=== PATIENT | male | born 1965 | race Caucasian/White ===

== ENCOUNTER → 2019-03-01 | Outpatient (CLI) | payer BC ==
[2019-03-01 13:04] LABS: HCT 47.5 % (39.0-53.0); HGB 15.8 gm/dL (13.0-17.5); MCHC 33.3 g/dL (31.0-37.0); Macrocytosis Slight; Mean Platelet Volume 7.4; Platelet Count 642 k/uL (150-450); RBC 4.79 m/uL (4.30-5.90); RDW 15.8 % (11.5-15.5); WBC 15.7 k/uL (3.8-10.6)
[2019-03-01 13:13] LABS: INR 0.9 (<1.2); Partial Thromboplastin Time 26.3 sec (22.0-30.0); Prothrombin Time 9.9 sec (9.0-12.0)
[2019-03-01 13:30] LABS: African American GFR (CKD) >90 (>60 ml/min/1.73 sqM); Albumin 4.3 g/dL (3.5-5.0); Anion Gap 15 mmol/L; Blood Urea Nitrogen 16 mg/dL (9-20); Calcium 9.8 mg/dL (8.4-10.2); Carbon Dioxide 21 mmol/L (22-30); Chloride 101 mmol/L (98-107); Glucose 88 mg/dL (74-99); Sodium 137 mmol/L (137-145); Total Bilirubin 0.7 mg/dL (0.2-1.3); Total Protein 7.3 g/dL (6.3-8.2)
[2019-03-01 13:32] LABS: Potassium 4.3 mmol/L (3.5-5.1)
[2019-03-01 13:33] LABS: ALT 61 U/L (21-72); AST 65 U/L (17-59); Alkaline Phosphatase 100 U/L (38-126)
[2019-03-01 14:35] LABS: Appearance,Urine Clear (Clear); Bilirubin,Urine Negative (Negative); Blood,Urine Negative (Negative); Color,Urine Yellow; Glucose,Urine (UA) Negative (Negative); Ketones,Urine Negative (Negative); Leukocyte Esterase,Urine Negative (Negative); Nitrite,Urine Negative (Negative); Protein,Urine Negative (Negative); Urobilinogen,Urine <2.0 mg/dL (<2.0)
[2019-03-03 11:18] LABS: Hepatitis A Antibody IgM Non-Reactive (Non-Reactive); Hepatitis B Core IgM Non-Reactive (Non-Reactive)
== END | disposition home or self-care (01) ==
LOC: LABPAT 12:14
PROVIDERS: ATTEND Orthopaedic Surgery
DX: Z01.818 Encounter for other preprocedural examination (principal); Z01.812 Encounter for preprocedural laboratory examination
CPT/HCPCS: 36415; 80053; 80074; 81003; 85027; 85610; 85730; 87070; 93005

== ENCOUNTER → 2019-03-03 | Outpatient (CLI) | payer BC ==
[2019-03-03 13:54] LABS: Basophils # (A) 0.1 k/uL (0-0.2); Basophils % (A) 1 %; Eosinophils # (A) 0.5 k/uL (0-0.7); Eosinophils % (A) 3 %; HCT 46.2 % (39.0-53.0); HGB 15.6 gm/dL (13.0-17.5); Lymphocytes # (A) 1.2 k/uL (1.0-4.8); Lymphocytes % (A) 7 %; MCHC 33.7 g/dL (31.0-37.0); MCV 100.7 fL (80.0-100.0); Macrocytosis Slight; Mean Platelet Volume 6.2; Monocytes # (A) 1.1 k/uL (0-1.0); Monocytes % (A) 6 %; Neutrophils # (A) 14.5 k/uL (1.3-7.7); Neutrophils % (A) 83 %; Platelet Count 624 k/uL (150-450); RBC 4.59 m/uL (4.30-5.90); RDW 14.8 % (11.5-15.5); WBC 17.5 k/uL (3.8-10.6)
== END | disposition home or self-care (01) ==
LOC: LABWHC1 13:28
PROVIDERS: ATTEND Internal Medicine
DX: D72.829 Elevated white blood cell count, unspecified (principal)
CPT/HCPCS: 36415; 85025

== ENCOUNTER → 2019-03-22 | Outpatient (CLI) | payer BC ==
[2019-03-22 15:23] LABS: Basophils % (A) 1 %; Eosinophils # (A) 0.6 k/uL (0-0.7); Eosinophils % (A) 6 %; HCT 48.4 % (39.0-53.0); Lymphocytes # (A) 1.4 k/uL (1.0-4.8); Lymphocytes % (A) 15 %; MCH 33.1 pg (25.0-35.0); MCHC 33.1 g/dL (31.0-37.0); MCV 100.1 fL (80.0-100.0); Macrocytosis Slight; Mean Platelet Volume 6.4; Monocytes # (A) 0.5 k/uL (0-1.0); Monocytes % (A) 5 %; Neutrophils # (A) 6.8 k/uL (1.3-7.7); Neutrophils % (A) 73 %; Platelet Count 513 k/uL (150-450); RBC 4.84 m/uL (4.30-5.90); RDW 14.9 % (11.5-15.5); WBC 9.4 k/uL (3.8-10.6)
== END | disposition home or self-care (01) ==
LOC: LABWHC1 15:08
PROVIDERS: ATTEND Internal Medicine
DX: D72.829 Elevated white blood cell count, unspecified (principal); R60.0 Localized edema
CPT/HCPCS: 36415; 85025

== ENCOUNTER → 2019-04-08 | Outpatient (CLI) | payer BC ==
[2019-04-08 17:36] LABS: Anisocytosis Slight; HCT 48.3 % (39.0-53.0); HGB 16.3 gm/dL (13.0-17.5); MCH 34.1 pg (25.0-35.0); MCHC 33.8 g/dL (31.0-37.0); Macrocytosis Slight; Mean Platelet Volume 7.3; Platelet Count 274 k/uL (150-450); RBC 4.78 m/uL (4.30-5.90); RDW 16.2 % (11.5-15.5); WBC 9.2 k/uL (3.8-10.6)
[2019-04-08 17:42] LABS: Appearance,Urine Clear (Clear); Bacteria,Urine Rare /hpf; Bilirubin,Urine Negative (Negative); Blood,Urine Negative (Negative); Color,Urine Yellow; Glucose,Urine (UA) Negative (Negative); Hyphae Yeast, Urine Rare /hpf; Ketones,Urine Trace (Negative); Leukocyte Esterase,Urine Moderate (Negative); Mucus,Urine Rare /hpf; Nitrite,Urine Negative (Negative); Protein,Urine Negative (Negative); RBC,Urine <1 /hpf (0-5); Specific Gravity,Urine 1.007 (1.001-1.035); Urobilinogen,Urine <2.0 mg/dL (<2.0); WBC,Urine 6 /hpf (0-5)
[2019-04-08 17:46] LABS: INR 0.9 (<1.2); Partial Thromboplastin Time 27.7 sec (22.0-30.0); Prothrombin Time 9.6 sec (9.0-12.0)
[2019-04-08 17:52] LABS: Albumin 4.6 g/dL (3.5-5.0); Calcium 10.3 mg/dL (8.4-10.2); Potassium 4.4 mmol/L (3.5-5.1); Total Protein 8.1 g/dL (6.3-8.2)
== END | disposition home or self-care (01) ==
LOC: LABPAT 17:01
PROVIDERS: ATTEND Orthopaedic Surgery
DX: Z01.812 Encounter for preprocedural laboratory examination (principal); M16.12 Unilateral primary osteoarthritis, left hip
CPT/HCPCS: 36415; 80053; 81001; 85027; 85610; 85730; 87070

== ENCOUNTER 2019-04-12 11:21 | Inpatient (IN) | payer BC ==
[~2019-04-12 11:21] MED LIST: ACETAMINOPHEN TAB 500 MG TAB PO ONE; HYDROmorphone 0.5 MG/0.5 ML SYRINGE IVP PRN; LIDOCAINE 1% 20 ML VIAL (10MG/ML) FOR IV START INTRADERMA PRN; MELOXICAM 7.5 MG TAB PO ONE; ONDANSETRON 4 MG/2 ML VIAL IVP ONE; TRANEXAMIC ACID 1,000 MG in SODIUM CHLORIDE 0.9% 100 ML IVPB ONE
[2019-04-12] MEDS: LACTATED RINGERS 1,000 ML IV SCH ×2 (12:01→18:27)
[2019-04-12] MEDS ORDERED: DEXAMETHASONE SOD PHOS (MDV) 100 MG/10 ML VIAL IVP ONE (12:13)
[2019-04-12] MEDS ORDERED: ROPIVACAINE 246.25 MG, EPINEPHrine 0.5 MG, KETOROLAC 30 MG, cloNIDine HCL/PF 80 MCG, WA... MISCELLANE ONE ×5 (12:19)
[2019-04-12] MEDS ORDERED: TRANEXAMIC ACID 1,000 MG/10 ML VIAL ONE (12:37)
[2019-04-12] MEDS ORDERED: SODIUM CHLORIDE 0.9% 100 ML BAG ONE (12:37)
[2019-04-12] MEDS ORDERED: PROPOFOL 10 MG/ML 20 ML VIAL IV ONE (12:37)
[2019-04-12] MEDS ORDERED: MIDAZOLAM 2 MG/2 ML VIAL ONE (12:37)
[2019-04-12] MEDS ORDERED: fentaNYL (PF) 50 MCG/ML 2 ML AMP ONE (12:37)
[2019-04-12] MEDS ORDERED: ceFAZolin 3,000 MG in SODIUM CHLORIDE 0.9% IRRIGATIO 3,000 ML IRRIGATION ONE (12:38)
[2019-04-12] MEDS ORDERED: LACTATED RINGERS 1,000 ML IV ONE ×2 (13:15→14:30)
[2019-04-12] MEDS ORDERED: NALOXONE 0.4 MG/ML 1 ML VIAL IV PRN (14:24)
[2019-04-12] MEDS ORDERED: HYDROcodone/APAP 7.5-325MG 1 EACH TAB PO PRN (14:24)
[2019-04-12] MEDS ORDERED: HYDROmorphone 1 MG/ML 1 ML SYRINGE IVP PRN (14:24)
[2019-04-12] MEDS ORDERED: MAGNESIUM HYDROXIDE 2,400 MG/10 ML CUP PO PRN (14:24)
[2019-04-12] MEDS ORDERED: HYDROmorphone 0.5 MG/0.5 ML SYRINGE IVP PRN (14:24)
--- NOTE | 2019-04-12 14:46 | P.OP ---
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 ANESTHESIA: Spinal ESTIMATED BLOOD LOSS: 50 ml. AGENCY SALES DIRECTOR: Maricel Clancy PA-C (assistance with: patient positioning, retraction, exposure, hemostasis, leg positioning, implantation, irrigation, closure, dressing) COMPLICATIONS: None apparent. COMPONENTS IMPLANTED: Marva continuum acetabular cup with cluster holes; continuum longevity 15 elevated liner, 32 mm id; Marva VerSys Fiber Metal stem; VerSys 32 mm femoral head with 10.5 mm neck length extension INDICATIONS: Julio is a 53-year-old male with significant end-stage arthritis secondary to avascular necrosis (presumably from use of alcohol) involving the left hip and commensurate severe symptoms. He has symptoms and avascular necrosis bilaterally, greater on the left than the right. He presents to the operating room today for left total hip replacement. He has a limb length inequality of approximately 1-1.5 cm with the left side being shorter. I have discussed the steps of the operation as well as potential risks and complications as being inclusive of, but not limited to: Leading, infection, scarring, discomfort, or vessel and/or nerve damage, need for further surgery, loosening, dislocation, wear, osteolysis, limb length inequality, fracture, blood clot, pulmonary embolism, , persistent limp, and other risks. The patient is aware these risks and wishes to proceed with surgery and has signed a consent form. PROCEDURE: After appropriate consent was obtained, the patient was taken to the operating room and placed in supine position. Spinal anesthetic was administered and after confirmation of adequate anesthesia, the patient was placed into the lateral decubitus position with the left side up. Care was taken to make sure that all pressure points were adequately padded and he was stabilized to the table with a [place] hip positioner. The left hip was prepped and draped in the usual aseptic fashion using a combination of ChloraPrep and alcohol. [place] drape was used for the case and the patient received intravenous antibiotics prior to the incision. "Time out" was called, confirming patient identity, side, procedure, availability of implants and administration of antibiotics and tranexamic acid. The incision was created directly over the greater trochanter and carried slightly posteriorly for a posterior approach to the hip. The incision was then deepened down to subcutaneous tissue and fascia maya. Fascia maya was split in line with the incision and split proximally along the fibers of the gluteus jorden. The underlying fibers of the muscle were teased apart using finger dissection and bleeding vessels were picked up and coagulated. Retractor was then placed posteriorly consisting of a blunt Willie. The short external rotators and capsule were exposed using good visualization of the attachment of the external rotators to the femur was established. The short external rotators and capsule were released using electrocautery from their femoral attachments. A hockey stick shaped incision was created in the capsule. Joint fluid was evacuated and the patient's hip was able to be dislocated fairly easily. The patient's femoral head was severely arthritic with eburnated bone present and a 360 degrees navarrete of osteophytes. The femoral neck cut was created approximately 1 cm superior to the lesser trochanter using a reciprocating saw. The femoral head and neck fragment was removed and attention was then directed to the acetabulum. An anterior acetabular retractor was applied followed by posterior retraction of the capsule with a Meyerding retractor. This afforded good visualization into the acetabular cavity. Soft tissue was removed and residual cartilage within the acetabular vault was removed using a curette. Labrum was removed using a long-handled knife. Attention was then directed to reaming. The size 44 reamer was used first, followed by increasing increments until the final size reamer was used. Please see the implantation sheet for exact sizes used for the components. Once the final reamer had been utilized to expand the socket it was noted that there was a good supportive bone around the acetabular socket and no further reaming needed to be performed. The trial the same size as the last reamer used was then impacted into the acetabular vault and found to have good fit. The acetabular component, one size (2mm) greater than the trial was then called for. The cluster holes were placed posteriorly and the component was impacted in a position of approximately 40 degrees abduction and 20 degrees anteversion. This matched this patient's [place] anteversion and it was noted that the cup had excellent stability without need for additional screw fixation. Attention was then directed to the acetabular liner. The anteversion and abduction angle of the component was noted to be very good. A 15 elevated liner was used and locked into position. Osteophytes around the posterior and inferior aspect of the acetabulum were trimmed as necessary to prevent any impingement. Attention was then directed back to the proximal femur. Retractors were placed around the proximal femur and box osteotome was used followed by canal finder and trochanteric reamer. Cylindrical reaming was performed. Progressive broaching was then performed starting with a #10 broach and progressing final size, in a position of 15 degrees anteversion. [place] anteversion was within 5 degrees of stem position. The final size broach had excellent fit and fill of the patient's metaphysis and diaphysis. Trial reduction was then performed starting with size 32 mm femoral head and various neck combination of stability, limb length equality, and soft tissue tension. Trial components were then removed. The canal was lavaged and the final size femoral stem component was impacted into position. The implant fit very well and had excellent stability. The femoral head was then impacted onto the Scott taper. Blood and debris were removed from the acetabular component and the hip was then reduced and checked for stability, limb length and soft tissue tension. These parameters found to be satisfactory, the wound was then thoroughly irrigated with normal saline. Final hemostasis was obtained using electrocautery and IV tranexamic acid, 1 g given at the time of prepping and draping, and another 1 g given at the time of closure. Local anesthetic solution consisting of ropivacaine with epinephrine, clonidine, and ketorolac was also used throughout the case targeting the capsule, fascia, and skin. Closure of the capsule was performed meticulously using #3 Vicryl suture. Four [id number] sutures were placed in the posterior capsule along with repair of the external rotators. The fascia maya was then repaired using combination of #3 Vicryl suture in interrupted fashion and Quill and running fashion. 2-0 Vicryl suture was used for the subcutaneous tissues and 3-0 Quill for the skin. Dermabond or Steri-Strips were then applied. The patient tolerated the procedure well. There were no complications and the wound bed was dry and there was no need for drain placement. Sterile dressing was then applied and the patient was carefully removed from the operating room table, placed on the stretcher and was taken to the recovery room in stable condition. Sponge and needle counts were correct.
--- NOTE | 2019-04-12 14:59 | XR ---
EXAMINATION TYPE: XR Hip Limited LT DATE OF EXAM: 04/12/2019 COMPARISON: None HISTORY: Postop left hip prosthesis placement TECHNIQUE: Single AP view left hip FINDINGS: There is left hip prosthesis present. No acute fractures are evident post surgery. Postsurg ical changes are within the left hip region. IMPRESSION: 1. No acute fractures post left hip replacement.
[2019-04-12] MEDS: HYDROcodone/APAP 7.5-325MG 1 EACH TAB PO PRN (16:35)
[2019-04-12 16:49] VITALS: BMI 26.6
[2019-04-12] MEDS: PANTOPRAZOLE 40 MG TABLET PO SCH (18:27)
[2019-04-12] MEDS: LISINOPRIL 10 MG TAB PO SCH (18:28)
[2019-04-12] MEDS: HYDROmorphone 0.5 MG/0.5 ML SYRINGE IVP PRN (18:31)
[2019-04-12] MEDS: hydrOXYzine PAMOATE 25 MG CAP PO PRN (18:32)
[2019-04-12] MEDS: ASPIRIN 325 MG TAB PO SCH (20:25)
[2019-04-12] MEDS: SENNOSIDES-DOCUSATE SODIUM 1 EACH TAB PO SCH (20:25)
[2019-04-13] MEDS: HYDROcodone/APAP 7.5-325MG 1 EACH TAB PO PRN ×3 (00:50→16:42)
[2019-04-13] MEDS: hydrOXYzine PAMOATE 25 MG CAP PO PRN ×2 (01:05→21:54)
[2019-04-13] MEDS: LACTATED RINGERS 1,000 ML IV SCH ×4 (01:18→22:02)
[2019-04-13] MEDS: HYDROmorphone 0.5 MG/0.5 ML SYRINGE IVP PRN ×2 (04:54→11:24)
[2019-04-13 07:56] LABS: Basophils % (A) 0 %; Eosinophils # (A) 0.1 k/uL (0-0.7); Eosinophils % (A) 0 %; HCT 36.5 % (39.0-53.0); Lymphocytes # (A) 1.1 k/uL (1.0-4.8); Lymphocytes % (A) 9 %; MCH 33.2 pg (25.0-35.0); MCHC 33.2 g/dL (31.0-37.0); Macrocytosis Slight; Mean Platelet Volume 7.2; Monocytes # (A) 0.7 k/uL (0-1.0); Monocytes % (A) 6 %; Neutrophils # (A) 9.8 k/uL (1.3-7.7); Neutrophils % (A) 84 %; Platelet Count 432 k/uL (150-450); RBC 3.65 m/uL (4.30-5.90); RDW 15.6 % (11.5-15.5); WBC 11.7 k/uL (3.8-10.6)
[2019-04-13 08:02] LABS: HGB 12.1 gm/dL (13.0-17.5)
--- NOTE | 2019-04-13 08:17 | P.DS ---
Providers Date of admission: 04/12/19 11:21 Expected date of discharge: 04/13/19 Attending physician: Basil Mccabe Consults: 04/12/19 12:33 Consult Physician Urgent Consulting Provider: Rene Hassan Consult Reason/Comments: HO prophylaxis left hip-radiation tx left hip Do you want consulting provider notified?: Yes 04/12/19 14:24 Consult Physician Routine Consulting Provider: Lc Davis Consult Reason/Comments: Medical management Do you want consulting provider notified?: Yes Primary care physician: Jann Bentley - Discharge Diagnosis(es) (1) Primary osteoarthritis of left hip Current Visit: Yes Status: Acute (2) Status post total hip replacement, left Current Visit: Yes Status: Acute Hospital Course: This is a 53-year-old male with known history of degenerative arthritis of the left hip. The patient presents for evaluation. After discussion and consideration patient elects to proceed with total hip arthroplasty. The patient is seen preoperatively by his primary care physician and cleared for surgery. Patient is admitted to [facility] on 04/12/2019 for left total hip arthroplasty. The procedures performed without complication or sequelae. The patient is doing well postoperatively. Labs and vital signs are stable on day of discharge. He is to undergo one dose of radiation therapy to the left hip postoperatively. On day of discharge patient's hip incision is healing well. There is minimal erythema. There is no drainage noted at this time. There is minimal soft tissue swelling to the hip and thigh. Patient has full foot and ankle motion without difficulty or pain. Neurovascular status to the left lower extremity is intact. Patient is discharged to home in good condition. Pertinent Studies: Laboratory Tests 04/13/19 06:58 WBC 11.7 H RBC 3.65 L Hgb 12.1 L D Hct 36.5 L RDW 15.6 H Neutrophils # 9.8 H Patient Condition at Discharge: Stable Plan - Discharge Summary Discharge Rx Participant: Yes New Discharge Prescriptions: New Aspirin 325 mg PO BID #60 tab HYDROcodone/APAP 7.5-325MG [[place] 7.5-325] 1 - 2 tab PO Q4-6H PRN #50 tab PRN Reason: Pain Sennosides-Docusate Sodium [Senokot-S] 1 tab PO BID #60 tablet No Action Lisinopril [Zestril] 10 mg PO QAM tiZANidine [Zanaflex] 4 mg PO Q8HR PRN PRN Reason: Muscle Spasm Omeprazole [PriLOSEC] 20 mg PO AC-BID LORazepam [Ativan] 0.5 mg PO Q8HR PRN PRN Reason: Anxiety Diclofenac Sodium [Voltaren] 75 mg PO BID Discharge Medication List Lisinopril [Zestril] 10 mg PO QAM 03/01/19 [History] tiZANidine [Zanaflex] 4 mg PO Q8HR PRN 03/01/19 [History] Omeprazole [PriLOSEC] 20 mg PO AC-BID 04/05/19 [History] Aspirin 325 mg PO BID #60 tab 04/12/19 [Rx] Diclofenac Sodium [Voltaren] 75 mg PO BID 04/12/19 [History] HYDROcodone/APAP 7.5-325MG [[place] 7.5-325] 1 - 2 tab PO Q4-6H PRN #50 tab 04/12/19 [Rx] LORazepam [Ativan] 0.5 mg PO Q8HR PRN 04/12/19 [History] Sennosides-Docusate Sodium [Senokot-S] 1 tab PO BID #60 tablet 04/12/19 [Rx] Follow up Appointment(s)/Referral(s): Maricel Clancy, BUNNY [PHYSICIAN [employer]] - 2 Weeks Activity/Diet/Wound Care/Special Instructions: Toe touch wt bearing w walker. May shower if no drainage from incision. Discharge Disposition: HOME WITH HOME HEALTH SERVICES
[2019-04-13] MEDS: ASPIRIN 325 MG TAB PO SCH ×2 (08:21→20:23)
[2019-04-13] MEDS: PANTOPRAZOLE 40 MG TABLET PO SCH ×2 (08:21→16:43)
[2019-04-13] MEDS: MELOXICAM 7.5 MG TAB PO SCH (08:21)
[2019-04-13] MEDS: LISINOPRIL 10 MG TAB PO SCH (08:21)
--- NOTE | 2019-04-13 13:52 | P.CONS ---
History of Present Illness - Reason for Consult leukocytosis, hypertension - History of Present Illness patient is a pleasant 53-year-old gentleman underwent the left hip arthroplasty patient is clinically doing well did pass gas patient is about to be discharged patient is hypotensive blood pressure is bit elevated was started back on his antidepressive medication I do not have an of time to titrate his medications patient can be discharged from my perspective check his blood pressure at home follow with PCP as an outpatient patient does have leukocytosis without any signs or symptoms of infection no dysuria no fever no chills or cough. Leukocytosis probably reactive in nature. Review of Systems REVIEW OF SYSTEMS: CONSTITUTIONAL: No fever, no malaise, no fatigue. HEENT: No recent visual problems or hearing problems. Denied any sore throat. CARDIOVASCULAR: No chest pain, orthopnea, PND, no palpitations, no syncope. PULMONARY: No shortness of breath, no cough, no hemoptysis. GASTROINTESTINAL: No diarrhea, no nausea, no vomiting, no abdominal pain. NEUROLOGICAL: No headaches, no weakness, no numbness. HEMATOLOGICAL: Denies any bleeding or petechiae. GENITOURINARY: Denies any burning micturition, frequency, or urgency. MUSCULOSKELETAL/RHEUMATOLOGICAL: Denies any joint pain, swelling, or any muscle pain. ENDOCRINE: Denies any polyuria or polydipsia. The rest of the 14-point review of systems is negative. Past Medical History Past Medical History: GERD/Reflux, Hearing Disorder / Deafness, Hypertension, Osteoarthritis (OA) Additional Past Medical History / Comment(s): deaf right ear History of Any Multi-Drug Resistant Organisms: None Reported Past Surgical History: Orthopedic Surgery Additional Past Surgical History / Comment(s): arthroscopy right knee x3 Past Anesthesia/Blood Transfusion Reactions: No Reported Reaction Past Psychological History: No Psychological Hx Reported Smoking Status: Never smoker Past Alcohol Use History: Occasional Past Drug Use History: Marijuana Additional Drug Use History / Comment(s): approximate use every other day - Past Family History Mother Family Medical History: Cancer Medications and Allergies Home Medications Medication Instructions Recorded Confirmed Type Lisinopril [Zestril] 10 mg PO QAM 03/01/19 04/12/19 History tiZANidine [Zanaflex] 4 mg PO Q8HR PRN 03/01/19 04/12/19 History Omeprazole [PriLOSEC] 20 mg PO AC-BID 04/05/19 04/12/19 History Aspirin 325 mg PO BID #60 tab 04/12/19 Rx Diclofenac Sodium [Voltaren] 75 mg PO BID 04/12/19 04/12/19 History HYDROcodone/APAP 7.5-325MG [[place] 1 - 2 tab PO Q4-6H PRN #50 tab 04/12/19 Rx 7.5-325] LORazepam [Ativan] 0.5 mg PO Q8HR PRN 04/12/19 04/12/19 History Sennosides-Docusate Sodium 1 tab PO BID #60 tablet 04/12/19 Rx [Senokot-S] Allergies Allergy/AdvReac Type Severity Reaction Status Date / Time No Known Allergies Allergy Verified 04/12/19 14:26 Physical Exam Vitals: Vital Signs Temp Pulse Resp BP Pulse Ox 04/13/19 07:00 98.3 F 84 16 158/89 95 04/13/19 04:00 87 18 04/13/19 01:14 98.4 F 87 18 164/90 96 04/12/19 22:35 98.0 F 105 H 17 149/92 95 04/12/19 20:00 18 04/12/19 17:22 101 H 185/108 04/12/19 16:52 96 95/61 04/12/19 16:37 79 175/99 04/12/19 16:23 84 156/98 04/12/19 16:07 79 151/94 04/12/19 15:53 83 160/98 04/12/19 15:38 69 164/92 04/12/19 15:22 97.5 F L 79 15 152/93 93 L 04/12/19 15:05 77 16 145/84 100 04/12/19 14:49 78 18 131/72 100 04/12/19 14:34 86 16 125/40 100 04/12/19 14:19 97 F L 101 H 16 110/70 96 Intake and Output 04/12/19 04/13/19 04/13/19 22:59 06:59 14:59 Intake Total 110 170 Balance 110 170 Intake: Intake, IV Titration 50 50 Amount ceFAZolin 2 gm In Sodium 50 50 Chloride 0.9% 50 ml @ 100 mls/hr IVPB Q8H [facility] Rx#: [id number] Oral 60 120 Other: Voiding Method Toilet Toilet # Voids 1 PHYSICAL EXAMINATION: GENERAL: The patient is alert and oriented x3, not in any acute distress. Well developed, well nourished. HEENT: Pupils are round and equally reacting to light. EOMI. No scleral icterus. No conjunctival pallor. Normocephalic, atraumatic. No pharyngeal erythema. No thyromegaly. CARDIOVASCULAR: S1 and S2 present. No murmurs, rubs, or gallops. PULMONARY: Chest is clear to auscultation, no wheezing or crackles. ABDOMEN: Soft, nontender, nondistended, normoactive bowel sounds. No palpable organomegaly. MUSCULOSKELETAL: deferred to orthopedic surgery EXTREMITIES: No cyanosis, clubbing, or pedal edema. NEUROLOGICAL: Gross neurological examination did not reveal any focal deficits. SKIN: No rashes. Results CBC & Chem 7: 04/13/19 06:58 Labs: Abnormal Lab Results - Last 24 Hours (Table) 04/13/19 Range/Units 06:58 WBC 11.7 H (3.8-10.6) k/uL RBC 3.65 L (4.30-5.90) m/uL Hgb 12.1 L D (13.0-17.5) gm/dL Hct 36.5 L (39.0-53.0) % RDW 15.6 H (11.5-15.5) % Neutrophils # 9.8 H (1.3-7.7) k/uL Assessment and Plan Plan: -leukocytosis reactive in nature no further intervention is necessary at this time -Status post left hip replacement: Pain management due to prophylaxis as per primary service -Hypertension patient can resume his home medications upon discharge -gastroesophageal reflux disease -Marijuana use: Counseling was provided
[2019-04-13] MEDS ORDERED: HYDROcodone/APAP 10-325MG 1 EACH TAB PO PRN (17:42)
[2019-04-13] MEDS: SENNOSIDES-DOCUSATE SODIUM 1 EACH TAB PO SCH (20:23)
[2019-04-13] MEDS: HYDROcodone/APAP 10-325MG 1 EACH TAB PO PRN (21:54)
[2019-04-13] MEDS ORDERED: TEMAZEPAM 15 MG CAP PO PRN (22:00)
[2019-04-14 01:52] VITALS: PULSE 94
[2019-04-14] MEDS: HYDROcodone/APAP 10-325MG 1 EACH TAB PO PRN ×2 (03:01→09:28)
[2019-04-14] MEDS: hydrOXYzine PAMOATE 25 MG CAP PO PRN ×2 (03:02→09:27)
[2019-04-14] MEDS: LACTATED RINGERS 1,000 ML IV SCH ×2 (07:51)
[2019-04-14] MEDS: PANTOPRAZOLE 40 MG TABLET PO SCH (07:55)
[2019-04-14] MEDS: MELOXICAM 7.5 MG TAB PO SCH (07:55)
[2019-04-14] MEDS: ASPIRIN 325 MG TAB PO SCH (07:55)
[2019-04-14] MEDS: LISINOPRIL 10 MG TAB PO SCH (07:55)
[2019-04-14 08:11] VITALS: BP 121/76; RESP 15; TEMP 98.9
--- NOTE | 2019-04-14 08:44 | P.PN ---
Progress Note - Text Progress Note Date: 04/14/19 This is a 53-year-old male who we are following regarding his left hip. He is status post total left hip arthroplasty on 04/12/2019. His discharge was held yesterday secondary to pain control issues. He is doing better today. He has no new complaints or concerns today. Vital signs and labs are stable. Exam the left hip reveals no new findings. Dressing is clean, dry and intact. He has full foot and ankle motion without difficulty or pain. Neurovascular status to the lower extremity is intact.
--- NOTE | 2019-04-14 14:10 | P.PN ---
Subjective no overnight events patient is clinically doing well and is being discharged today no changes in his home medications are being made. Patient can be discharged from medical perspective Objective - Vital Signs Vital signs: Vital Signs Temp 98.9 F 04/14/19 07:06 Pulse 94 04/14/19 07:06 Resp 15 04/14/19 07:06 BP 121/76 04/14/19 07:06 Pulse Ox 97 04/14/19 07:06 Intake & Output 04/13/19 04/14/19 04/14/19 18:59 06:59 18:59 Intake Total 590 180 Balance 590 180 Intake: Oral 590 180 Other: Voiding Method Toilet Toilet Toilet # Voids 2 2 - Exam PHYSICAL EXAMINATION: GENERAL: The patient is alert and oriented x3, not in any acute distress. Well developed, well nourished. HEENT: Pupils are round and equally reacting to light. EOMI. No scleral icterus. No conjunctival pallor. Normocephalic, atraumatic. No pharyngeal erythema. No thyromegaly. CARDIOVASCULAR: S1 and S2 present. No murmurs, rubs, or gallops. PULMONARY: Chest is clear to auscultation, no wheezing or crackles. ABDOMEN: Soft, nontender, nondistended, normoactive bowel sounds. No palpable organomegaly. MUSCULOSKELETAL: deferred to orthopedic surgery EXTREMITIES: No cyanosis, clubbing, or pedal edema. NEUROLOGICAL: Gross neurological examination did not reveal any focal deficits. SKIN: No rashes. - Labs CBC & Chem 7: 04/13/19 06:58 Assessment and Plan Plan: -leukocytosis reactive in nature no further intervention is necessary at this time -Status post left hip replacement: Pain managementDVTo prophylaxis as per primary service -Hypertension patient can resume his home medications upon discharge -gastroesophageal reflux disease -Marijuana use: Counseling was provided
== END 2019-04-14 12:50 | disposition home health service (06) | DRG 470 ==
LOC: 2ORMAIN 11:21 → 4SSUR 14:19
PROVIDERS: ADMIT Orthopaedic Surgery; ATTEND Orthopaedic Surgery
PROC: 0SRB02A Replacement of Left Hip Joint with Metal on Polyethylene Synthetic Substitute, Uncemented, Open Approach (ICD-10-PCS; principal; 2019-04-12 12:30)
DX: M16.7 Other unilateral secondary osteoarthritis of hip (principal); M87.9 Osteonecrosis, unspecified; D72.829 Elevated white blood cell count, unspecified; H91.91 Unspecified hearing loss, right ear; I10 Essential (primary) hypertension; K21.9 Gastro-esophageal reflux disease without esophagitis; M21.70 Unequal limb length (acquired), unspecified site; E78.5 Hyperlipidemia, unspecified; F32.9 Major depressive disorder, single episode, unspecified; R45.0 Nervousness; R26.81 Unsteadiness on feet; Z79.82 Long term (current) use of aspirin; Z79.899 Other long term (current) drug therapy
CPT/HCPCS: 36415; 73501; 77290; 77307; 77334; 77412; 80053; 81001; 85025; 85027; 85610; 85730; 86850; 86900; 86901; 87070; 88300

== ENCOUNTER → 2019-05-27 | Outpatient (CLI) | payer BC ==
[2019-05-27 13:10] LABS: INR 0.9 (<1.2); Partial Thromboplastin Time 26.3 sec (22.0-30.0); Prothrombin Time 9.9 sec (9.0-12.0)
[2019-05-27 13:12] LABS: HCT 45.4 % (39.0-53.0); HGB 14.6 gm/dL (13.0-17.5); MCH 32.8 pg (25.0-35.0); MCHC 32.2 g/dL (31.0-37.0); MCV 101.7 fL (80.0-100.0); Macrocytosis Slight; Mean Platelet Volume 6.4; Platelet Count 332 k/uL (150-450); RBC 4.46 m/uL (4.30-5.90); WBC 7.4 k/uL (3.8-10.6)
[2019-05-27 13:23] LABS: Appearance,Urine Clear (Clear); Bacteria,Urine Rare /hpf; Bilirubin,Urine Negative (Negative); Blood,Urine Negative (Negative); Color,Urine Yellow; Glucose,Urine (UA) Negative (Negative); Hyaline Casts,Urine 73 /lpf (0-2); Ketones,Urine Negative (Negative); Leukocyte Esterase,Urine Trace (Negative); Mucus,Urine Moderate /hpf; Nitrite,Urine Negative (Negative); PH, Urine 5.5 (5.0-8.0); Protein,Urine 1+ (Negative); RBC,Urine <1 /hpf (0-5); Specific Gravity,Urine 1.021 (1.001-1.035); Sperm,Urine Moderate /hpf; Squamous Epithelial Cell,Urine <1 /hpf (0-4); WBC,Urine 3 /hpf (0-5)
[2019-05-28 01:55] LABS: African American GFR (CKD) 80.7 (60.0-200.0); Albumin 4.5 g/dL (3.80-4.90); Albumin/Globulin Ratio 1.96 (1.60-3.17); Anion Gap 10.3 mmol/L (4.00-12.00); BUN/Creat Ratio 16.67 Ratio (12.00-20.00); Calcium 9.8 mg/dL (8.7-10.3); Carbon Dioxide 21.7 mmol/L (21.6-31.8); Globulin 2.3 g/dL (1.6-3.3); Potassium 4.7 mmol/L (3.5-5.5); Total Bilirubin 0.7 mg/dL (0.3-1.2); Total Protein 6.8 g/dL (6.2-8.2)
== END | disposition home or self-care (01) ==
LOC: LABWHC1 12:33
PROVIDERS: ATTEND Orthopaedic Surgery
DX: Z01.812 Encounter for preprocedural laboratory examination (principal)
CPT/HCPCS: 36415; 80053; 81001; 85027; 85610; 85730; 87070

== ENCOUNTER 2019-06-07 06:13 | Inpatient (IN) | payer BC ==
[~2019-06-07 06:13] MED LIST changes: +METOCLOPRAMIDE 5 MG/ML 2 ML VIAL IVP PRN
[2019-06-07] MEDS ORDERED: MIDAZOLAM 2 MG/2 ML VIAL IVP ONE (07:06)
[2019-06-07] MEDS ORDERED: DEXAMETHASONE SOD PHOSPHATE 10 MG/ML 1 ML VIAL IV ONE (07:06)
[2019-06-07] MEDS: LACTATED RINGERS 1,000 ML IV SCH ×3 (07:17→20:12)
[2019-06-07] MEDS ORDERED: ROPIVACAINE 246.25 MG, EPINEPHrine 0.5 MG, KETOROLAC 30 MG, cloNIDine HCL/PF 80 MCG, WA... MISCELLANE ONE ×5 (07:19)
[2019-06-07] MEDS ORDERED: fentaNYL (PF) 50 MCG/ML 2 ML AMP IVP ONE ×2 (07:22→07:25)
[2019-06-07] MEDS ORDERED: ePHEDrine SULFATE/0.9% NACL/PF 50 MG/5 ML SYRINGE IV ONE (07:29)
[2019-06-07] MEDS ORDERED: SODIUM CHLORIDE 0.9% 100 ML BAG ONE (07:29)
[2019-06-07] MEDS ORDERED: PROPOFOL 10 MG/ML 20 ML VIAL IV ONE (07:29)
[2019-06-07] MEDS ORDERED: PHENYLEPHRINE-0.9% NACL SYG 1 MG/10 ML SYRINGE ONE (07:29)
[2019-06-07] MEDS ORDERED: KETAMINE 10 MG/ML 20 ML VIAL ONE (07:29)
[2019-06-07] MEDS ORDERED: MIDAZOLAM 2 MG/2 ML VIAL ONE (07:29)
[2019-06-07] MEDS ORDERED: TRANEXAMIC ACID 1,000 MG/10 ML VIAL ONE (07:29)
[2019-06-07] MEDS ORDERED: fentaNYL (PF) 50 MCG/ML 2 ML AMP ONE (07:29)
[2019-06-07] MEDS ORDERED: ceFAZolin 3,000 MG in SODIUM CHLORIDE 0.9% IRRIGATIO 3,000 ML IRRIGATION ONE (08:13)
[2019-06-07] MEDS: ROPIVACAINE 246.25 MG, EPINEPHrine 0.5 MG, KETOROLAC 30 MG, cloNIDine HCL/PF 80 MCG, WA... MISCELLANE ONE ×10 (08:13→08:58)
--- NOTE | 2019-06-07 09:09 | P.OP ---
Date of Procedure: 06/07/19 Procedure(s) Performed: PREOPERATIVE DIAGNOSIS: Right hip severe osteoarthritis POSTOPERATIVE DIAGNOSIS: Right hip severe osteoarthritis OPERATION: Right hip total replacement arthroplasty (uncemented implantation with ceramic on polyethylene articulation). ANESTHESIA: Spinal ESTIMATED BLOOD LOSS: 200 ml. PEER FINANCIAL COUNSELOR: Maricel Clancy PA-C (assistance with: patient positioning, retraction, exposure, hemostasis, leg positioning, implantation, irrigation, closure, dressing) COMPLICATIONS: None apparent. COMPONENTS IMPLANTED: Marva continuum acetabular cup with cluster holes; continuum longevity 15 elevated liner, 32 mm id; Marva VerSys Fiber Metal stem; VerSys 32 mm femoral head with +3.5 mm neck length extension INDICATIONS: Evan is a 53-year-old male with significant end-stage osteoarthritis/osteonecrosis involving the right hip and commensurate severe symptoms. He recently has undergone left total hip replacement successfully for the same process. He presents to the operating room today for total hip replacement. I have discussed the steps of the operation as well as potential risks and complications as being inclusive of, but not limited to: Leading, infection, scarring, discomfort, or vessel and/or nerve damage, need for further surgery, loosening, dislocation, wear, osteolysis, limb length inequality, fracture, blood clot, pulmonary embolism, , persistent limp, and other risks. The patient is aware these risks and wishes to proceed with surgery and has signed a consent form. PROCEDURE: After appropriate consent was obtained, the patient was taken to the operating room and placed in supine position. Spinal anesthetic was administered and after confirmation of adequate anesthesia, the patient was placed into the lateral decubitus position with the right side up. Care was taken to make sure that all pressure points were adequately padded and he was stabilized to the table with a [place] hip positioner. The right hip was prepped and draped in the usual aseptic fashion using a combination of ChloraPrep and alcohol. [place] drape was used for the case and the patient received intravenous antibiotics prior to the incision. "Time out" was called, confirming patient identity, side, procedure, availability of implants and administration of antibiotics. The incision was created directly over the greater trochanter and carried slightly posteriorly for a posterior approach to the hip. The incision was then deepened down to subcutaneous tissue and fascia maya. Fascia maya was split in line with the incision and split proximally along the fibers of the gluteus jorden. The underlying fibers of the muscle were teased apart using finger dissection and bleeding vessels were picked up and coagulated. Retractor was then placed posteriorly consisting of a blunt [place]. The short external rotators and capsule were exposed using good visualization of the attachment of the external rotators to the femur was established. The short external rotators and capsule were released using electrocautery from their femoral attachments. A hockey stick shaped incision was created in the capsule. Joint fluid was evacuated and the patient's hip was able to be dislocated fairly easily. The patient's femoral head was severely arthritic with eburnated bone present and a 360 degrees navarrete of osteophytes. The femoral neck cut was created approximately 1 cm superior to the lesser trochanter using a reciprocating saw. The femoral head and neck fragment was removed and attention was then directed to the acetabulum. An anterior acetabular retractor was applied followed by posterior retraction of the capsule with a [place] retractor. This afforded good visualization into the acetabular cavity. Soft tissue was removed and residual cartilage within the acetabular vault was removed using a curette. Labrum was removed using a long-handled knife. Attention was then directed to reaming. The size 44 reamer was used first, followed by increasing increments until the final size reamer was used. Please see the implantation sheet for exact sizes used for the components. Once the final reamer had been utilized to expand the socket it was noted that there was a good supportive bone around the acetabular socket and no further reaming needed to be performed. The trial the same size as the last reamer used was then impacted into the acetabular vault and found to have good fit. The acetabular component, one size (2mm) greater than the trial was then called for. The cluster holes were placed posteriorly and the component was impacted in a position of approximately 40 degrees abduction and 20 degrees anteversion. This matched this patient's [place] anteversion and it was noted that the cup had excellent stability without need for additional screw fixation. Attention was then directed to the acetabular liner. The anteversion and abduction angle of the component was noted to be very good. A 15 elevated liner was used and locked into position with the elevation posterior superior. Osteophytes around the posterior and inferior aspect of the acetabulum were trimmed as necessary to prevent any impingement. Attention was then directed back to the proximal femur. Retractors were placed around the proximal femur and box osteotome was used followed by canal finder and trochanteric reamer. Cylindrical reaming was performed. Progressive broaching was then performed starting with a #10 broach and progressing final size, in a position of 15 degrees anteversion. [place] anteversion was within 5 degrees of stem position. The final size broach had excellent fit and fill of the patient's metaphysis and diaphysis. Trial reduction was then performed starting with size 32 mm femoral head and various neck combination of stability, limb length equality, and soft tissue tension. Trial components were then removed. The canal was lavaged and the final size femoral stem component was impacted into position. The implant fit very well and had excellent stability. The femoral head was then impacted onto the Scott taper. Blood and debris were removed from the acetabular component and the hip was then reduced and checked for stability, limb length and soft tissue tension. These parameters found to be satisfactory, the wound was then thoroughly irrigated with normal saline. Final hemostasis was obtained using electrocautery and IV tranexamic acid, 1 g given at the time of prepping and draping, and another 1 g given at the time of closure. Local anesthetic solution consisting of ropivacaine with epinephrine, clonidine, and ketorolac was also used throughout the case targeting the capsule, fascia, and skin. Closure of the capsule was performed meticulously using #3 Vicryl suture. Four [id number]-yx-clbny sutures were placed in the posterior capsule along with repair of the external rotators. The fascia maya was then repaired using combination of #3 Vicryl suture in interrupted fashion and [place] and running fashion. 2-0 Vicryl suture was used for the subcutaneous tissues and 3-0 Quill for the skin. Dermabond or Steri-Strips were then applied. The patient tolerated the procedure well. There were no complications and the wound bed was dry and there was no need for drain placement. Sterile dressing was then applied and the patient was carefully removed from the operating room table, placed on the stretcher and was taken to the recovery room in stable condition. Sponge and needle counts were correct.
[2019-06-07] MEDS ORDERED: LACTATED RINGERS 1,000 ML IV ONE (09:14)
[2019-06-07] MEDS ORDERED: HYDROcodone/APAP 7.5-325MG 1 EACH TAB PO PRN (09:42)
[2019-06-07] MEDS ORDERED: HYDROmorphone 0.5 MG/0.5 ML SYRINGE IVP PRN ×2 (09:42)
[2019-06-07] MEDS ORDERED: MAGNESIUM HYDROXIDE 2,400 MG/10 ML CUP PO PRN (09:42)
[2019-06-07] MEDS ORDERED: ACETAMINOPHEN TAB 325 MG TAB PO PRN (09:42)
[2019-06-07] MEDS ORDERED: NALOXONE 0.4 MG/ML 1 ML VIAL IV PRN (09:42)
--- NOTE | 2019-06-07 10:04 | XR ---
EXAMINATION TYPE: XR Hip Limited RT DATE OF EXAM: 06/07/2019 COMPARISON: None HISTORY: Postop right hip placement TECHNIQUE: Single AP right hip FINDINGS: There is placement of a femoral prosthesis and acetabular component. No acute fractures are evident. Postsurgical changes are noted within soft tissues. IMPRESSION: 1. No acute fracture post hip replacement.
[2019-06-07 11:49] VITALS: BMI 27.7
[2019-06-07] MEDS: KETOROLAC 30 MG/ML 1 ML VIAL IVP SCH ×2 (11:51→16:56)
[2019-06-07] MEDS: HYDROcodone/APAP 7.5-325MG 1 EACH TAB PO PRN ×2 (12:13→18:43)
[2019-06-07] MEDS: MULTIVITAMINS, THERA 1 EACH TAB PO SCH (12:14)
[2019-06-07] MEDS: LISINOPRIL 10 MG TAB PO SCH (13:44)
--- NOTE | 2019-06-07 15:21 | P.CON ---
Consult Note - . Consult date: 06/07/19 Assessment/Plan:: Reason for consult - management of chronic medical conditions History of present illness - Mr. Christianson is a 53-year-old male with a past medical history of GERD/reflux, hearing disorder/deafness, hypertension, osteoarthritis admitted for right total hip replacement. Patient had the surgery done this morning and he is currently lying comfortably in the bed appears to be in no acute distress. Patient has past medical history of hy pertension for which she takes 10 mg of lisinopril every day. He also has history of GERD and he takes Prilosec 20 mg every day. Patient denies having any other significant medical histories. He denies having any history of smoking or alcohol abuse. Postop patient's blood pressure was elevated, he was given pain medications and his blood pressure was still a little bit on the higher side. Patient took his 10 mg of lisinopril prior to surgery this morning. He was given an extra dose of 10 mg of lisinopril and would monitor his blood pressure. REVIEW OF SYSTEMS: PSYCH: No anxiety or depression NEURO:No c/o weakness of the extremties, No facial droop, No speech abnormalities. VASCULAR: Peripheral nervous system within the normal limits no edema HEMATOLOGIC: No history of easy bleeding and bruising . No recent infections . RESPIRATORY: No cough, No SOB, No chest discomfort. IMMUNE: No infections INTEGUMENT: no rashes OPHTHALMOLOGIC: No blurry vision and no eye discharge : No dysuria or hematuria CARDIAC: No chest pain , shortness of breath , paroxysmal nocturnal dyspnea MUSCULOSKELETAL : No Aches or pains in the joints or muscles. GI: No abdominal pain, Nausea or vomiting. No constipation or diarrhea. Past Medical History Past Medical History: GERD/Reflux, Hearing Disorder / Deafness, Hypertension, Osteoarthritis (OA) Additional Past Medical History / Comment(s): deaf right ear, hx gout, History of Any Multi-Drug Resistant Organisms: None Reported Past Surgical History: Joint Replacement, Orthopedic Surgery, Tonsillectomy Additional Past Surgical History / Comment(s): arthroscopy right knee x3, left hip replacement Past Anesthesia/Blood Transfusion Reactions: No Reported Reaction Smoking Status: Never smoker - Past Family History Mother Family Medical History: Cancer Medications and Allergies Home Medications Medication Instructions Recorded Confirmed Type Lisinopril [Zestril] 10 mg PO QAM 03/01/19 06/03/19 History tiZANidine [Zanaflex] 4 mg PO Q8HR PRN 03/01/19 06/07/19 History Omeprazole [PriLOSEC] 20 mg PO AC-BID 04/05/19 06/07/19 History Diclofenac Sodium [Voltaren] 75 mg PO BID 04/12/19 06/03/19 History LORazepam [Ativan] 0.5 mg PO Q8HR PRN 04/12/19 06/07/19 History Sennosides-Docusate Sodium 1 tab PO BID #60 tablet 04/12/19 06/03/19 Rx [Senokot-S] Meloxicam [Mobic] 7.5 mg PO DAILY PRN 06/03/19 06/03/19 History Multivitamins, Thera [Multivitamin 1 tab PO DAILY 06/03/19 06/03/19 History (formulary)] Aspirin 325 mg PO BID #1 tab 06/07/19 Rx HYDROcodone/APAP 7.5-325MG [[place] 1 - 2 tab PO Q4-6H PRN #50 tab 06/07/19 Rx 7.5-325] Sennosides-Docusate Sodium 1 tab PO BID #60 tablet 06/07/19 Rx [Senokot-S] Allergies Allergy/AdvReac Type Severity Reaction Status Date / Time No Known Allergies Allergy Verified 06/03/19 13:09 Physical Exam Vitals: Vital Signs Temp Pulse Resp BP BP Pulse Ox 06/07/19 14:45 98.5 F 117 H 16 152/94 97 06/07/19 12:25 104 H 155/102 97 06/07/19 12:10 80 156/101 95 06/07/19 11:40 68 152/88 97 06/07/19 11:25 64 140/91 97 06/07/19 11:10 75 155/84 97 06/07/19 10:55 57 L 154/80 96 06/07/19 10:40 64 150/88 96 06/07/19 10:25 97.7 F 64 151/83 97 06/07/19 10:00 57 L 16 157/82 97 06/07/19 09:45 53 L 16 156/75 97 06/07/19 09:35 97.6 F 67 16 174/80 96 06/07/19 07:31 168/102 178/105 06/07/19 07:24 73 18 213/113 183/93 94 L 06/07/19 07:06 71 18 179/91 156/80 95 06/07/19 06:39 98.2 F 74 18 186/117 165/87 94 L Intake and Output 06/07/19 06/07/19 06/07/19 06:59 14:59 22:59 Intake Total 1831 Output Total 200 Balance 1631 Intake: IV 1251 Oral 580 Output: Estimated Blood Loss 200 GEN. APPEARANCE: alert, in no apparent distress HEENT - no pallor, no icterus. No JVD. RESPIRATORY EXAM: Bilateral breath sounds are positive. No wheezing or crackles. CARDIOVASCULAR EXAM: S1-S2 heard. GI/ABDOMINAL EXAM: Abdomen is soft. Normal bowel sounds. No guarding or rigidity. EXTREMITIES EXAM: No pedal edema. NEUROLOGICAL EXAM: alert, oriented X3, no focal deficits. PSYCHIATRIC EXAM: normal affect, normal mood SKIN EXAM: warm, dry, intact, normal color. Absent: rash ASSESSMENT Status post right hip total replacement arthroplasty - done today Hypertension GERD/reflux Multiple joint osteoarthritis History of left hip replacement done recently PLAN: Patient's blood pressure has been running on the higher side he was given an extra dose of 10 mg of lisinopril. Pain management and DVT prophylaxis as per primary care team recommendations. Patient has been restarted on all his home medications. Will follow the patient. Thank you for the consult.
[2019-06-07] MEDS: HYDROmorphone 1 MG/ML 1 ML SYRINGE IVP PRN ×2 (20:06→23:07)
[2019-06-07] MEDS: SENNOSIDES-DOCUSATE SODIUM 1 EACH TAB PO SCH (20:06)
[2019-06-07] MEDS: ASPIRIN 325 MG TAB PO SCH (20:06)
[2019-06-07] MEDS ORDERED: SENNOSIDES-DOCUSATE SODIUM 1 EACH TAB PO SCH (21:00)
[2019-06-08] MEDS: HYDROcodone/APAP 7.5-325MG 1 EACH TAB PO PRN ×4 (00:44→19:41)
[2019-06-08] MEDS: HYDROmorphone 1 MG/ML 1 ML SYRINGE IVP PRN ×4 (04:09→21:41)
[2019-06-08] MEDS: LACTATED RINGERS 1,000 ML IV SCH ×5 (05:56→21:07)
[2019-06-08 06:52] LABS: Basophils % (A) 0 %; Eosinophils # (A) 0.2 k/uL (0-0.7); Eosinophils % (A) 2 %; HCT 30.9 % (39.0-53.0); Lymphocytes # (A) 1.5 k/uL (1.0-4.8); Lymphocytes % (A) 18 %; MCH 33.6 pg (25.0-35.0); MCHC 33.3 g/dL (31.0-37.0); MCV 101.2 fL (80.0-100.0); Macrocytosis Slight; Mean Platelet Volume 6.1; Monocytes # (A) 0.6 k/uL (0-1.0); Monocytes % (A) 7 %; Neutrophils # (A) 6.2 k/uL (1.3-7.7); Neutrophils % (A) 72 %; Platelet Count 282 k/uL (150-450); RBC 3.05 m/uL (4.30-5.90); RDW 14.6 % (11.5-15.5); WBC 8.6 k/uL (3.8-10.6)
[2019-06-08 06:57] LABS: HGB 10.3 gm/dL (13.0-17.5)
[2019-06-08] MEDS: LISINOPRIL 10 MG TAB PO SCH (07:25)
[2019-06-08] MEDS: MELOXICAM 7.5 MG TAB PO SCH (07:25)
[2019-06-08] MEDS: ASPIRIN 325 MG TAB PO SCH ×2 (07:25→20:59)
[2019-06-08] MEDS: PANTOPRAZOLE 40 MG TABLET PO SCH (07:26)
[2019-06-08 08:13] LABS: Glucose,Whole Blood 118 mg/dL (75-99)
[2019-06-08] MEDS ORDERED: MULTIVITAMINS, THERA 1 EACH TAB PO SCH (09:00)
--- NOTE | 2019-06-08 10:51 | P.PN ---
Subjective Progress Note Date: 06/08/19 Principal diagnosis: Primary osteoarthritis and avascular necrosis right hip. Status post total right hip arthroplasty This is a 53-year-old male who is status post total right hip arthroplasty on 06/07/2019. He is is also status post total left arthroplasty 2 months ago. The patient is currently down getting prophylactic radiation treatment to the right hip. His blood pressure has been running a little bit high this morning. He is planning discharge to home tomorrow. I will contact nursing staff later today when he returns the floor to check on his status. Objective - Vital Signs Vital signs: Vital Signs Temp 98.5 F 06/08/19 07:00 Pulse 110 H 06/08/19 07:00 Resp 18 06/08/19 07:00 BP 170/88 06/08/19 07:00 Pulse Ox 97 06/08/19 07:00 Intake & Output 06/07/19 06/08/19 06/08/19 18:59 06:59 18:59 Intake Total 1831 300 Output Total 200 300 Balance 1631 0 Intake: IV 1251 Intake, IV Titration 300 Amount Lactated Ringers 1,000 ml 300 @ 100 mls/hr IV .Q10H BRIGID Rx#:[id number] Oral 580 Output: Urine 300 Estimated Blood Loss 200 - Exam Patient now available for exam at this time. - Labs CBC & Chem 7: 06/08/19 06:07 Labs: Abnormal Lab Results - Last 24 Hours (Table) 06/08/19 06/08/19 Range/Units 06:07 07:59 RBC 3.05 L (4.30-5.90) m/uL Hgb 10.3 L D (13.0-17.5) gm/dL Hct 30.9 L (39.0-53.0) % MCV 101.2 H (80.0-100.0) fL POC Glucose (mg/dL) 118 H (75-99) mg/dL Assessment and Plan (1) Osteoarthritis of right hip Current Visit: Yes Status: Acute Code(s): M16.11 - UNILATERAL PRIMARY OSTEOARTHRITIS, RIGHT HIP SNOMED Code(s): 310506122208937 (2) Status post total hip replacement, right Current Visit: Yes Status: Acute Code(s): Z96.641 - PRESENCE OF RIGHT ARTIFICIAL HIP JOINT SNOMED Code(s): 541369784622 (3) Status post total hip replacement, left Current Visit: No Status: Acute Code(s): Z96.642 - PRESENCE OF LEFT ARTIFICIAL HIP JOINT SNOMED Code(s): 863391925096 Plan: I have reviewed the case with nursing. I will check with them later today to see how he is doing. Most likely discharge to home tomorrow.
[2019-06-08] MEDS: MULTIVITAMINS, THERA 1 EACH TAB PO SCH (12:57)
--- NOTE | 2019-06-08 17:23 | P.PN ---
Subjective Patient is status post right hip total arthroplasty clinically doing well overnight events patient blood pressure is well-controlled patient did receive his antidepressants medications today. Constitutional: Denied any fatigue denied any fever. Cardio vascular: denied any chest pain, palpitations Gastrointestinal denied any nausea vomiting Pulmonary: Denied any shortness of breath cough Neurologic denied any new focal deficits All inpatient medications were reviewed and appropriate changes in these medications as dictated in the interval history and assessment and plan. Objective - Vital Signs Vital signs: Vital Signs Temp 98.5 F 06/08/19 15:00 Pulse 95 06/08/19 15:00 Resp 18 06/08/19 15:36 BP 136/76 06/08/19 15:00 Pulse Ox 97 06/08/19 15:00 Intake & Output 06/07/19 06/08/19 06/08/19 18:59 06:59 18:59 Intake Total 1831 300 Output Total 200 300 Balance 1631 0 Intake: IV 1251 Intake, IV Titration 300 Amount Lactated Ringers 1,000 ml 300 @ 100 mls/hr IV .Q10H BRIGID Rx#:[id number] Oral 580 Output: Urine 300 Estimated Blood Loss 200 Other: # Voids 2 - Exam PHYSICAL EXAMINATION: GENERAL: The patient is alert and oriented x3, not in any acute distress. Well developed, well nourished. HEENT: Pupils are round and equally reacting to light. EOMI. No scleral icterus. No conjunctival pallor. Normocephalic, atraumatic. No pharyngeal erythema. No thyromegaly. CARDIOVASCULAR: S1 and S2 present. No murmurs, rubs, or gallops. PULMONARY: Chest is clear to auscultation, no wheezing or crackles. ABDOMEN: Soft, nontender, nondistended, normoactive bowel sounds. No palpable organomegaly. MUSCULOSKELETAL: Deferred to orthopedic surgery EXTREMITIES: No cyanosis, clubbing, or pedal edema. NEUROLOGICAL: Gross neurological examination did not reveal any focal deficits. SKIN: No rashes. - Labs CBC & Chem 7: 06/08/19 06:07 Labs: Abnormal Lab Results - Last 24 Hours (Table) 06/08/19 06/08/19 Range/Units 06:07 07:59 RBC 3.05 L (4.30-5.90) m/uL Hgb 10.3 L D (13.0-17.5) gm/dL Hct 30.9 L (39.0-53.0) % MCV 101.2 H (80.0-100.0) fL POC Glucose (mg/dL) 118 H (75-99) mg/dL Assessment and Plan Plan: Status post right hip total replacement arthroplasty -yesterday pain management and DVT prophylaxis per primary service Hypertension: Continue with lisinopril GERD/reflux Multiple joint osteoarthritis History of left hip replacement done recently
[2019-06-08 19:26] VITALS: RESP 16
[2019-06-08] MEDS: SENNOSIDES-DOCUSATE SODIUM 1 EACH TAB PO SCH (20:59)
[2019-06-08] MEDS ORDERED: TEMAZEPAM 15 MG CAP PO PRN (22:00)
[2019-06-09] MEDS ORDERED: HYDROcodone/APAP 7.5-325MG 1 EACH TAB ONE (04:28)
[2019-06-09 07:57] VITALS: BP 145/64; PULSE 108; TEMP 98.8
--- NOTE | 2019-06-09 08:39 | P.DS ---
Providers Date of admission: 06/07/19 06:13 Expected date of discharge: 06/09/19 Attending physician: Basil Mccabe Consults: 06/07/19 07:19 Consult Physician Routine Consulting Provider: Rene Hassan Consult Reason/Comments: Radiation hip Do you want consulting provider notified?: Yes 06/07/19 09:42 Consult Physician Routine Consulting Provider: Zina Borja Consult Reason/Comments: Medical management Do you want consulting provider notified?: Yes Primary care physician: Jann Bentley - Discharge Diagnosis(es) (1) Osteoarthritis of right hip Current Visit: Yes Status: Acute (2) Status post total hip replacement, right Current Visit: Yes Status: Acute (3) Status post total hip replacement, left Current Visit: No Status: Acute Hospital Course: This is a 53-year-old male with known history of degenerative arthritis of the right hip. The patient presents for evaluation. After discussion and consideration patient elects to proceed with total hip arthroplasty. The patient is seen preoperatively by his primary care physician and cleared for surgery. Patient is admitted to [facility] on 06/07/2019 for total hip arthroplasty. The procedures performed without complication or sequelae. The patient is doing well postoperatively. He had radiation treatment to the right hip for heterotopic ossification prophylaxis on postoperative day #1. Labs and vital signs are stable on day of discharge. On day of discharge patient's hip incision is healing well. There is minimal erythema. There is no drainage noted at this time. There is minimal soft tissue swelling to the hip and thigh. Patient has full foot and ankle motion without difficulty or pain. Neurovascular status to the right lower extremity is intact. Patient is discharged to home in good condition. Please see med rec for accurate list of home medications. Plan - Discharge Summary Discharge Rx Participant: Yes New Discharge Prescriptions: New Aspirin 325 mg PO BID #1 tab HYDROcodone/APAP 7.5-325MG [[place] 7.5-325] 1 - 2 tab PO Q4-6H PRN #50 tab PRN Reason: Pain Sennosides-Docusate Sodium [Senokot-S] 1 tab PO BID #60 tablet Discontinued Diclofenac Sodium [Voltaren] 75 mg PO BID No Action Lisinopril [Zestril] 10 mg PO QAM tiZANidine [Zanaflex] 4 mg PO Q8HR PRN PRN Reason: Muscle Spasm Omeprazole [PriLOSEC] 20 mg PO AC-BID LORazepam [Ativan] 0.5 mg PO Q8HR PRN PRN Reason: Anxiety Sennosides-Docusate Sodium [Senokot-S] 1 tab PO BID #60 tablet Meloxicam [Mobic] 7.5 mg PO DAILY PRN PRN Reason: Pain Multivitamins, Thera [Multivitamin (formulary)] 1 tab PO DAILY Discharge Medication List Lisinopril [Zestril] 10 mg PO QAM 03/01/19 [History] tiZANidine [Zanaflex] 4 mg PO Q8HR PRN 03/01/19 [History] Omeprazole [PriLOSEC] 20 mg PO AC-BID 04/05/19 [History] LORazepam [Ativan] 0.5 mg PO Q8HR PRN 04/12/19 [History] Sennosides-Docusate Sodium [Senokot-S] 1 tab PO BID #60 tablet 04/12/19 [Rx] Meloxicam [Mobic] 7.5 mg PO DAILY PRN 06/03/19 [History] Multivitamins, Thera [Multivitamin (formulary)] 1 tab PO DAILY 06/03/19 [History] Aspirin 325 mg PO BID #1 tab 06/07/19 [Rx] HYDROcodone/APAP 7.5-325MG [[place] 7.5-325] 1 - 2 tab PO Q4-6H PRN #50 tab 06/07/19 [Rx] Sennosides-Docusate Sodium [Senokot-S] 1 tab PO BID #60 tablet 06/07/19 [Rx] Follow up Appointment(s)/Referral(s): Maricel Clancy PAC [PHYSICIAN FINANCIAL MANAGEMENT CONSULTANT] - [facility], [NON-STAFF] - As Needed Patient Instructions/Handouts: Total Hip Replacement (DC) Activity/Diet/Wound Care/Special Instructions: Toe touch weight bearing Right Lower Extremity with walker. May shower if no drainage from incision 48h post op. Discharge Disposition: HOME WITH HOME HEALTH SERVICES
[2019-06-09] MEDS: PANTOPRAZOLE 40 MG TABLET PO SCH (08:42)
[2019-06-09] MEDS: LISINOPRIL 10 MG TAB PO SCH (08:42)
[2019-06-09] MEDS: MELOXICAM 7.5 MG TAB PO SCH (08:42)
[2019-06-09] MEDS: ASPIRIN 325 MG TAB PO SCH (08:42)
[2019-06-09] MEDS: HYDROcodone/APAP 7.5-325MG 1 EACH TAB PO PRN (10:00)
--- NOTE | 2019-06-09 10:36 | P.PN ---
Subjective Progress Note Date: 06/09/19 Principal diagnosis: Patient is status post right hip total arthroplasty clinically doing well overnight events patient blood pressure is well-controlled patient did receive his antidepressant medications today. Constitutional: Denied any fatigue denied any fever. Cardio vascular: denied any chest pain, palpitations Gastrointestinal denied any nausea vomiting Pulmonary: Denied any shortness of breath cough Neurologic denied any new focal deficits All inpatient medications were reviewed and appropriate changes in these medications as dictated in the interval history and assessment and plan. 06/09/2019 Patient is sitting up in bed in no acute distress and is awaiting to go home today. Patient was cleared by orthopedic surgery today and will be going home with home care that is already arranged. Patient denies any chest pain, shortness of breath, or palpitations at this time. Patient is afebrile today. Patient denies any nausea or vomiting and is been tolerating diet. Patient is very eager to go home today. Patient states that his pain is minimal and being managed properly. Guarded prognosis. Objective - Vital Signs Vital signs: Vital Signs Temp 98.8 F 06/09/19 07:00 Pulse 108 H 06/09/19 07:00 Resp 16 06/09/19 07:00 BP 145/64 06/09/19 07:00 Pulse Ox 96 06/09/19 07:00 Intake & Output 06/08/19 06/09/19 06/09/19 18:59 06:59 18:59 Intake Total 480 Balance 480 Intake: Oral 480 Other: # Voids 2 2 - Exam GENERAL: The patient is alert and oriented x3, not in any acute distress. Well developed, well nourished. Vital signs are stable. HEENT: Pupils are round and equally reacting to light. EOMI. No scleral icterus. No conjunctival pallor. Normocephalic, atraumatic. No pharyngeal erythema. No thyromegaly. CARDIOVASCULAR: S1 and S2 present. No murmurs, rubs, or gallops. PULMONARY: Chest is clear to auscultation, no wheezing or crackles. ABDOMEN: Soft, nontender, nondistended, normoactive bowel sounds. No palpable organomegaly. MUSCULOSKELETAL: Deferred to orthopedic surgery EXTREMITIES: No cyanosis, clubbing, or pedal edema. NEUROLOGICAL: Gross neurological examination did not reveal any focal deficits. SKIN: No rashes. - Labs CBC & Chem 7: 06/08/19 06:07 Assessment and Plan Assessment: Status post right hip total replacement arthroplasty -yesterday pain management and DVT prophylaxis per primary service Hypertension: Continue with lisinopril GERD/reflux Multiple joint osteoarthritis History of left hip replacement done recently Recommendations and discussion: Recommend continue with current medications, management, and symptomatic treatment. Per orthopedic surgery patient will be going home today and does have Homecare that follows with him which is already arranged. Vital signs have been stable. Hypertensive medication was resumed and will continue. Will continue to follow. Guarded prognosis. Patient is scheduled to go home today.
== END 2019-06-09 10:55 | disposition home health service (06) | DRG 470 ==
LOC: 2ORMAIN 06:13 → 4SSUR 09:34
PROVIDERS: ADMIT Orthopaedic Surgery; ATTEND Orthopaedic Surgery
PROC: 0SR904A Replacement of Right Hip Joint with Ceramic on Polyethylene Synthetic Substitute, Uncemented, Open Approach (ICD-10-PCS; principal; 2019-06-07 07:30)
DX: M16.11 Unilateral primary osteoarthritis, right hip (principal); M87.9 Osteonecrosis, unspecified; H91.91 Unspecified hearing loss, right ear; I10 Essential (primary) hypertension; K21.9 Gastro-esophageal reflux disease without esophagitis; Z96.642 Presence of left artificial hip joint; Z79.1 Long term (current) use of non-steroidal anti-inflammatories (NSAID); Z79.82 Long term (current) use of aspirin; Z79.891 Long term (current) use of opiate analgesic
CPT/HCPCS: 73501; 77307; 77334; 77412; 85025; 86850; 86900; 86901; 88305; 88311